=== PATIENT | male | born 1960 | race Caucasian/White ===

== ENCOUNTER 2019-04-14 08:15 | Emergency (ER) | payer OTHER ==
[~2019-04-14] VITALS: Ht 172.7 cm; Wt 85.3 kg
[~2019-04-14 08:15] MED LIST: A-B OTIC EAR DR15 ML OT; AUGMENTIN 875875 M1 PO; DOXYCYCLINE 10100 MG PO; EXCEDRIN CAPLE1 EACH PO; HYDROCODONE-AP1 EAC6 PO; NAPROSYN500 MG PO; NOHOMEMEDICATIONS; NORCO 10-325 T1 EACH PO; NORCO 5-325 TA1 EACH PO; NORFLEX100 MG PO; PROTONIX 20 MG20 MG PO; ROXICODONE5 M1 PO; TRAMADOL 50 MG50 MG PO; UNICOMPLEX M TA1 TA1 PO; VALIUM10 MG; VALIUM5 MG PO; VICOPROFEN 2001 EACH PO
[2019-04-14 08:40] LABS: ABSOLUTE BASOPHILS 0.1 thou/uL (0.0-0.2); ABSOLUTE LYMPHOCYTES 2.9 thou/uL (0.8-5.3); ABSOLUTE MONOCYTES 1.4 thou/uL (0.0-1.2); ABSOLUTE NEUTROPHILS 9.2 thou/uL (1.6-8.1); BASOPHILS 0.8 %; EOSINOPHILS 0.3 %; HEMATOCRIT 43.8 % (42.0-52.0); HEMOGLOBIN 15.5 gm/dL (14.0-18.0); LYMPHOCYTES 21.1 %; MCH 31.9 pg (26.0-34.0); MCHC 35.4 g/dL (28.0-37.0); MCV 90.1 fL (80.0-100.0); MONOCYTES 10.1 %; MPV 6.9 fl. (7.2-11.1); NUCLEATED RBCS 0 /100WBC; PLATELET COUNT* 335 thou/uL (150-400); POLYS 67.7 %; RBC 4.86 mil/uL (4.50-6.00); RDW-CV 13.4 % (10.5-14.5); WBC 13.6 thou/uL (4.0-11.0)
[2019-04-14 08:50] LABS: ANION GAP 14 mmol/L (7-16); BUN 11 mg/dL (7-18); CALCIUM 9.5 mg/dL (8.5-10.1); CHLORIDE 99 mmol/L (98-107); CO2 29 mmol/L (21-32); CREATININE 1.4 mg/dL (0.6-1.3); GLUCOSE 120 mg/dL (70-99); SODIUM 142 mmol/L (136-145)
[2019-04-14 08:53] LABS: APTT 28.9 Seconds (25.0-31.3); PROTIME 9.9 Seconds (9.20-11.50)
[2019-04-14 09:03] LABS: ALBUMIN 4.1 g/dL (3.4-5.0); ALKALINE PHOSPHATASE 123 U/L (46-116); CK-MB MASS 0.5 ng/mL (<0.5-3.6); LIPASE 51 U/L (73-393); MAGNESIUM 2.1 mg/dL (1.8-2.4); NT-PRO BRAIN NAT PEPTIDE 201 pg/mL (<300); SGOT 18 U/L (15-37); SGPT 45 U/L (30-65); TOTAL BILIRUBIN 3.1 mg/dL (<0.1-1.0); TOTAL PROTEIN 8.1 g/dL (6.4-8.2); TROPONIN-I LEVEL <0.06 ng/mL (<0.06)
[2019-04-14 09:04] LABS: POTASSIUM 2.8 mmol/L (3.5-5.1)
--- NOTE | 2019-04-14 12:47 | EXE ---
[place] [address] STRESS ECHOCARDIOGRAM Name: [facility]REE [facility]ARSEN [id number] Admission: 04/14/19 Attend Phys: Discharge: Date of : 60 Date of Service: 04/14/19 1247 Report #: [id number] THIS REPORT FOR: //name// APPROVED REPORT Study performed: 04/14/2019 11:38:37 Exam: Dobutamine Stress Echo Indication: Chest pain , Dyspnea Patient Location: In-Patient Stress Nurse: Skylar Alvares RN Room #: Supervising Physician: Neno Maciel MD Ht: 5 ft 8 in HR: 91 bpm BP: 145/90 mmHg Medical History Cardiac Risk Factors: Tobacco History (Current/Recent) Procedure The patient underwent a Pharmacological Stress Test using Dobutamine. Blood pressure, heart rate, and EKG were monitored. An Echocardiogram was performed by warehouse technician in four stages in quad fashion. At peak stress, four selected images were obtained and placed side by side with resting images for comparison. Stress Test Details Stress Test: Pharmacological Stress Test using Dobutamine. Reason for pharmacologic stress test: physical limitation. HR Resting HR: 91 bpm Max Heart Rate (APMHR): 162 bpm Max HR Achieved: 185 bpm Target HR (85% APMHR): 137 bpm % of APMHR: 114 Recovery HR: 100 bpm HR response to stress: Normal HR response to stress BP Resting BP: 145/90 mmHg Max BP: 172/86 mmHg Recovery BP: 125/73 mmHg BP response to stress: Normal blood pressure response [place] [address] STRESS ECHOCARDIOGRAM Name: TYREE LARSEN Room: [facility]#: [id number] Admission: 04/14/19 Attend Phys: Discharge: Date of : 60 Date of Service: 04/14/19 1247 Report #: [id number] Resting ECG: Sinus Rhythm, RBBB Stress ECG: Sinus Rhythm, RBBB ST Change: Normal Maximum ST Deviation: 0 mm Arrhythmia: None Recovery ECG: Sinus Rhythm, RBBB Recovery ST Change: Normal Recovery ST Deviation: 0 mm Recovery Arrhythmia: None Clinical Reason for Termination: Completed protocol Stress Symptoms: Chest pain Pre-Stress Echo The resting Echocardiogram showed normal left ventricular contractility with an estimated Ejection Fraction of about 60-65%. Post-Stress Echo The stress Echocardiogram showed normal left ventricular contractility with an estimated Ejection Fraction of about >70%. Conclusion Clinical Response: Equivocal Stress ECG Response: Indeterminant Stress Echo Images: Non-ischemic low risk dobutamine stress echo for predicting future cardiac events. Other Information Study Quality: Fair <Conclusion> low risk dobutamine stress echo for predicting future cardiac events. <ELECTRONICALLY SIGNED> By: Neno Maciel MD, FAC 04/14/19 1247 1247 1247 Neno Maciel MD, [facility] /INF
[2019-04-14] MEDS ORDERED: ULTRAM 50MG TAB50 MG PO (13:04)
[2019-04-14] MEDS ORDERED: AMOXICILLIN 50500 MG PO (13:04)
[2019-04-14 13:23] VITALS: BP 132/84
--- NOTE | 2019-04-14 16:16 | EKG ---
[place] [address] ELECTROCARDIOGRAM REPORT Name: TYREE LARSEN Room: [facility]#: [id number] Admission: 04/14/19 Attend Phys: Discharge: 04/14/19 Date of : 60 Report #: [id number] THIS REPORT FOR: //name// [facility] ED Test Date: 2019-04-14 Test Time: 08:20:22 Pat Name: TYREE LARSEN Department: Room: Gender: M Reimbursement Specialist: TDOWNS : 1960 Requested By: Ziggy Chun Order Number: [id number] MD: Neno Maciel Measurements Intervals [place] Rate: 130 P: -76 NE: 120 QRS: -85 QRSD: 125 T: 41 QT: 340 QTc: 500 Interpretive Statements Sinus or ectopic atrial tachycardia Atrial premature complex RBBB and LAFB Inferior infarct, old Baseline wander in lead(s) V3,V4,V5,V6 Compared to ECG 07/02/2017 14:11:27 Atrial premature complex(es) now present Sinus rhythm no longer present Electronically Signed On 04-14-2019 16:15:47 CDT by Neno Maciel [email or web address] <ELECTRONICALLY SIGNED> By: Neno Maciel MD, [facility] 04/14/19 1615 9 9 Neno Maciel MD, [facility] /EPI
== END 2019-04-14 13:23 | disposition home or self-care (01) ==
LOC: M.ERS 08:15
PROVIDERS: Family Medicine
DX: K04.7 Periapical abscess without sinus (principal); R07.9 Chest pain, unspecified; E87.6 Hypokalemia; M19.90 Unspecified osteoarthritis, unspecified site; F17.210 Nicotine dependence, cigarettes, uncomplicated; Z90.49 Acquired absence of other specified parts of digestive tract

== ENCOUNTER 2020-11-18 20:00 | Emergency (ER) | payer OTHER ==
[~2020-11-18] VITALS: Ht 172.7 cm; Wt 95.3 kg
[~2020-11-18 20:00] MED LIST changes: +AMOXICILLIN 50500 MG PO; +ULTRAM 50MG TAB50 MG PO
[2020-11-18] MEDS ORDERED: PREDNISONE50 MG PO (22:08)
[2020-11-18] MEDS ORDERED: FLEXERIL PO (22:08)
[2020-11-18] MEDS ORDERED: NORCO 10-325 T1 EACH PO (22:08)
[2020-11-18] MEDS ORDERED: DICLOFENAC SODI75 MG PO (22:08)
[2020-11-18 22:20] VITALS: BP 192/109
== END 2020-11-18 22:20 | disposition home or self-care (01) ==
LOC: M.ERS 20:00
DX: G89.29 Other chronic pain (principal); M16.0 Bilateral primary osteoarthritis of hip; M17.11 Unilateral primary osteoarthritis, right knee; F17.210 Nicotine dependence, cigarettes, uncomplicated; Z90.49 Acquired absence of other specified parts of digestive tract; Z96.652 Presence of left artificial knee joint; Z88.6 Allergy status to analgesic agent; W00.0XXA Fall on same level due to ice and snow, initial encounter; Y93.89 Activity, other specified; Y92.89 Other specified places as the place of occurrence of the external cause; Y99.8 Other external cause status

== ENCOUNTER 2020-11-26 19:41 | Inpatient (IN) | payer OTHER ==
[~2020-11-26] VITALS: Ht 172.7 cm; Wt 110.3 kg
--- NOTE | ~2020-11-26 | OP ---
[facility] [address] [place] [address] OPERATIVE REPORT Name: TYREE LARSEN Room: [address] IN .R.#: [id number] Admission: 11/26/20 Attend Phys: Mariam Enriquez MD Discharge: Date of : 60 Report #: [id number] THIS REPORT FOR: cc: FAM - No family physician/PCP FAM - No family physician/PCP ~ Alexandru Dean DO DICTATED BY: Paolo Cosme DO DATE OF SERVICE: 11/27/2020 PREOPERATIVE DIAGNOSIS: Right lower extremity soft tissue infection. POSTOPERATIVE DIAGNOSIS: Right lower extremity necrotizing fasciitis. PROCEDURES PERFORMED: Incision, drainage and debridement of right lower extremity several sites includin. Lateral thigh wound measuring 23 cm x 5 cm down to the level of muscle and fascia. 2. Medial thigh wound measuring 17 cm x 4 cm down to the level of muscle and fascia. 3. Medial lower extremity calf approximately 15 cm x 3 cm down to the level of muscle and fascia. 4. Lateral leg/calf approximately 4 cm down to the level of fascia and muscle. 5. Application of wound VAC to lateral thigh, medial thigh, medial calf. SURGEON: Alexandru Dean DO SLIP COVER SEWER: Osmani Cosme DO; Flavio Kan DO; Emily Blackwell DO ANESTHESIA: General. FLUIDS: Crystalloids per anesthesia. ESTIMATED BLOOD LOSS: 50 mL. DRAINS: None, but there are wound VACs in place. SPECIMENS: Multiple culture swabs as well as tissue cultures. COMPLICATIONS: None. CONDITION OF PATIENT: Stable. DISPOSITION: PACU, then return to Med/[place] [address] OPERATIVE REPORT Name: TYREE LARSEN Room: [address] IN [facility]#: [id number] Admission: 11/26/20 Attend Phys: Mariam Enriquez MD Discharge: Date of : 60 Report #: [id number] ANTIBIOTICS: The patient was on scheduled vancomycin and Rocephin from the floor. INDICATIONS FOR PROCEDURE: The patient is a 60-year-old male who was admitted to the hospital last night for further evaluation of right lower extremity cellulitis and concern for abscess based on CT imaging of his hip. He states that he had cellulitis for approximately 2 weeks. He had been evaluated in other Emergency Department about a week ago and they recommended oral antibiotics, which he tried, but he does not remember the name. On this admission, he was started on vancomycin and Rocephin. Upon evaluation in the morning after reviewing the hip CT, which demonstrated possible subcutaneous intramuscular gas in the anterior thigh compartment. CT of the right lower extremity did indicate some soft tissue edema/abscess throughout the thigh as well as the calf with the gas noted again therefore recommended emergent surgical incision, drainage and debridement. Informed the patient of the risks, benefits, indications, complications associated with this procedure including but not limited to infection, wound healing complications, need for a wound VAC and delayed closure, possible multiple repeat I and Ds, complication with anesthesia, DVT, PE, end-organ damage as well as other possibilities including . The patient demonstrated good understanding and wanted to proceed with surgery. OPERATIVE FINDINGS: A surgical evaluation of multiple incision sites, that are total of 4, did demonstrate subcutaneous seroma as well as purulence at the lateral thigh in the anterior compartment along the rectus and vastus musculature. The medial thigh wound demonstrated purulence and seromatous fluid along the sartorius musculature. The medial calf wound demonstrated purulence throughout the gastrocnemius and the lateral calf wound just demonstrated serous changes without any obvious gross purulence in the anterior and lateral compartments. DESCRIPTION OF PROCEDURE: I met with the patient in the preoperative suite. The correct right lower extremity was marked. The patient was taken to the operating room and placed supine on a well-padded table. He was given general anesthetic. A surgical timeout was completed, indicating correct patient, operative site and procedure to be performed. All in the room were in agreement and would like to proceed. We started the procedure at the lateral thigh as this seemed based on the CT to be the focus of the majority of the infection. Large incision was made approximately 23-25 cm in length through the skin and subcutaneous tissue to the level of the fascia, this was incised and the subcutaneous tissue was very serous and then as soon as the fascia was incised, there was gross purulence rather significant amount extending from the deep fascia. This was thoroughly irrigated with multiple 3 liter bags of saline. Also turned our attention to the medial thigh. An incision was made where further purulence was encountered deep to [place] [address] OPERATIVE REPORT Name: TYREE LARSEN Room: [address] IN [facility]#: [id number] Admission: 11/26/20 Attend Phys: Mariam Enriquez MD Discharge: Date of : 60 Report #: [id number] musculature. The surrounding compartments were also incised to verify there was no other tracking purulence and all of the compartments of the thigh were thoroughly examined and irrigated with multiple 3 liter bags of saline. I turned attention to the medial calf. Skin incision was made. Dissection was taken down to the level of the fascia and this was incised, demonstrating purulence again around the gastrocnemius musculature. Deep soleus musculature was free of purulence. Lateral wound was also opened to verify there was no infection here. There was a serous tissue at an incision based on the lateral lower leg. The anterior compartment and lateral compartments were both opened and evaluated and there was serous fluid without any gross purulence. Regardless, the lateral lower leg wound was also irrigated with copious saline. After all of the wounds were thoroughly irrigated using a total of at least 6-8 three liter bags of saline. I elected to close the wound with a wound VAC over both of the thigh wounds as well as the medial calf wound. Since there was no significant purulence in the lateral lower leg wound, this was closed with a 2-0 Monocryl and an interrupted 3-0 nylon on the skin. The wound VAC was set to 125 degrees of a negative pressure and there was good suction and seal at all 3 wound VAC sites. The lateral lower leg was dressed with 4 x 4s and Tegaderm. Karlos wrap was then applied. Needle and sponge counts were correct x 2 at the end of procedure. The patient was awakened from anesthesia and transferred to PACU in stable condition. ATTESTATION: Dr. Dean was present throughout all critical aspects of the case. POSTOPERATIVE CARE: The patient will obtain a consult from infectious disease for further recommendations regarding antibiotics. He will continue on vancomycin and Rocephin for now. We will follow the intraoperative cultures throughout his hospital stay. By: 1638 1720Alabrenda Dean DO /jonatan
[~2020-11-26 19:41] MED LIST changes: +DICLOFENAC SODI75 MG PO; +FLEXERIL PO; +PREDNISONE50 MG PO
[2020-11-26 19:58] VITALS: BP 120/104
[2020-11-26 20:42] LABS: HEMATOCRIT 36.1 % (42.0-52.0); HEMOGLOBIN 12.1 gm/dL (14.0-18.0); MCH 29.3 pg (26.0-34.0); MCHC 33.5 g/dL (28.0-37.0); MCV 87.4 fL (80.0-100.0); MPV 8.5 fl. (7.2-11.1); NUCLEATED RBCS 0 /100WBC; PLATELET COUNT* 223 thou/uL (150-400); RBC 4.13 mil/uL (4.50-6.00); RDW-CV 13.7 % (10.5-14.5); WBC 16.6 thou/uL (4.0-11.0)
[2020-11-26 20:47] LABS: CALCIUM 8.6 mg/dL (8.5-10.1); CREATININE 2.7 mg/dL (0.6-1.3); POTASSIUM 3.3 mmol/L (3.5-5.1)
[2020-11-26 20:58] LABS: ALBUMIN 1.7 g/dL (3.4-5.0); TOTAL BILIRUBIN 1.5 mg/dL (<0.1-1.0); TOTAL PROTEIN 6.8 g/dL (6.4-8.2)
[2020-11-26 21:23] LABS: ABSOLUTE LYMPHOCYTES 0.8 thou/uL (0.8-5.3); ABSOLUTE MONOCYTES 0.3 thou/uL (0.0-1.2); ABSOLUTE NEUTROPHILS 15.4 thou/uL (1.6-8.1); ATYPICAL LYMPHS 1 %
[2020-11-26 21:24] LABS: PLATELET ESTIMATE ADEQUATE
[2020-11-26 22:10] LABS: APTT 31.7 Seconds (25.0-31.3); INR 1.1; PROTIME 11.4 Seconds (9.20-11.50)
[2020-11-26 22:30] VITALS: BP 124/90
[2020-11-26 22:58] LABS: ESR (SEDRATE) 119 mm/hr (0-20)
[2020-11-26 23:30] VITALS: BP 115/69
[2020-11-27 08:20] VITALS: BP 116/75
[2020-11-27 11:52] VITALS: BP 113/71
[2020-11-27 12:29] LABS: AMP/METHAMP Negative (Negative); BARBITURATES Negative (Negative); BENZODIAZEPINES Negative (Negative); COCAINE Negative (Negative); METHADONE Negative (Negative); OPIATES POSITIVE (Negative); PCP Negative (Negative); THC POSITIVE (Negative)
--- NOTE | 2020-11-27 14:00 | EKG ---
[place] [address] ELECTROCARDIOGRAM REPORT Name: TYREE LARSEN Room: [address] IN [facility].#: [id number] Admission: 11/26/20 Attend Phys: Mariam Enriquez, Discharge: Date of : 60 Date of Service: 11/26/202028 Report #: [id number] THIS REPORT FOR: //name// [facility] ED Test Date: 2020-11-26 Test Time: 20:29:13 Pat Name: TYREE LARSEN Department: Room: [facility] Gender: M Steamtable Worker: [place] : 1960 Requested By: Benedict Mcbride Order Number: [id number] MD: Emmett Dowd Measurements Intervals [place] Rate: 105 P: 41 [place]: 181 QRS: -66 QRSD: 147 T: 34 QT: 369 QTc: 488 Interpretive Statements Sinus tachycardia Atrial premature complex RBBB and LAFB Compared to ECG 04/14/2019 08:20:22 Myocardial infarct finding no longer present Electronically Signed On 11-27-2020 14:00:38 JIGGER MACHINE OPERATOR by Emmett Dowd [email or web address] <ELECTRONICALLY SIGNED> By: Anastacio Dowd MD, [facility] 11/27/201399 28 28 Anastacio Dowd MD, [facility] /EPI
[2020-11-27 20:07] LABS: CREATININE 1.7 mg/dL (0.6-1.3); POTASSIUM 3.4 mmol/L (3.5-5.1)
[2020-11-27 20:21] LABS: ALBUMIN 1.5 g/dL (3.4-5.0); TOTAL BILIRUBIN 1.4 mg/dL (<0.1-1.0)
[2020-11-27 20:32] LABS: HEMATOCRIT 34.3 % (42.0-52.0); HEMOGLOBIN 11.3 gm/dL (14.0-18.0); MCH 28.9 pg (26.0-34.0); MCHC 32.9 g/dL (28.0-37.0); MCV 87.9 fL (80.0-100.0); MPV 8.9 fl. (7.2-11.1); NUCLEATED RBCS 0 /100WBC; PLATELET COUNT* 236 thou/uL (150-400); RDW-CV 13.8 % (10.5-14.5); WBC 21.8 thou/uL (4.0-11.0)
[2020-11-27 20:51] LABS: ABSOLUTE LYMPHOCYTES 1.7 thou/uL (0.8-5.3); ABSOLUTE MONOCYTES 1.1 thou/uL (0.0-1.2); METAMYELOCYTES 1 %
[2020-11-27 20:53] LABS: LARGE PLATELETS OCCASIONAL; PLATELET ESTIMATE ADEQUATE
[2020-11-27 20:54] LABS: HYPOCHROMASIA Occasional; POLYCHROMASIA Occasional; TOXIC GRANULATION Occasional
[2020-11-27 21:08] VITALS: BP 96/57
[2020-11-27 21:32] VITALS: BP 158/78
[2020-11-27 22:03] VITALS: BP 122/72
[2020-11-27 22:34] VITALS: BP 120/79
[2020-11-28] VITALS (21 sets, daily range): BP systolic 90–154; BP diastolic 52–114
[2020-11-28 03:22] LABS: ABSOLUTE EOSINOPHILS 0.1 thou/uL (0.0-0.7); ABSOLUTE LYMPHOCYTES 1.3 thou/uL (0.8-5.3); ABSOLUTE MONOCYTES 0.7 thou/uL (0.0-1.2); ABSOLUTE NEUTROPHILS 21.6 thou/uL (1.6-8.1); BASOPHILS 0.1 %; EOSINOPHILS 0.4 %; HEMATOCRIT 31.3 % (42.0-52.0); HEMOGLOBIN 10.3 gm/dL (14.0-18.0); LYMPHOCYTES 5.6 %; MCH 28.9 pg (26.0-34.0); MCV 87.7 fL (80.0-100.0); NUCLEATED RBCS 0 /100WBC; PLATELET COUNT* 241 thou/uL (150-400); POLYS 90.9 %; RBC 3.56 mil/uL (4.50-6.00); RDW-CV 13.7 % (10.5-14.5); WBC 23.8 thou/uL (4.0-11.0)
[2020-11-28 03:35] LABS: CALCIUM 8.1 mg/dL (8.5-10.1); CREATININE 1.7 mg/dL (0.6-1.3); POTASSIUM 3.3 mmol/L (3.5-5.1)
--- NOTE | 2020-11-28 11:59 | EKG ---
[place] [address] ELECTROCARDIOGRAM REPORT Name: TYREE LARSEN Room: [address] IN [facility].#: [id number] Admission: 11/26/20 Attend Phys: Mariam Enriquez, Discharge: Date of : 60 Date of Service: 11/27/20 1829 Report #: [id number] THIS REPORT FOR: //name// [facility] Test Date: 2020-11-27 Test Time: 18:29:55 Pat Name: TYREE LARSEN Department: Room: [facility] Gender: M Automation Operator: REJI : 1960 Requested By: Prince Ahn Order Number: [id number] Reading MD: Emmett Dowd Measurements Intervals [place] Rate: 154 P: 0 [place]: QRS: -80 QRSD: 135 T: 20 QT: 293 QTc: 469 Interpretive Statements Sinus tachycardia RBBB and LAFB Baseline wander in lead(s) V1 Compared to ECG 11/26/2020 20:29:13 Atrial premature complex(es) no longer present Electronically Signed On 11-28-2020 11:59:26 PROGRAM DIRECTOR/MUSIC DIRECTOR by Emmett Dowd [email or web address] <ELECTRONICALLY SIGNED> By: Anastacio Dowd MD, [facility] 11/28/20 1159 182 28 Anastacio Dowd MD, [facility] /EPI
--- NOTE | 2020-11-29 13:36 | EKG ---
[place] [address] ELECTROCARDIOGRAM REPORT Name: TYREE LARSEN Room: [address] IN [facility]#: [id number] Admission: 11/26/20 Attend Phys: Mariam Enriquez, Discharge: 11/28/20 Date of : 60 Date of Service: 11/27/20 1343 Report #: [id number] THIS REPORT FOR: //name// [facility] Test Date: 2020-11-27 Test Time: 13:43:47 Pat Name: TYREE LARSEN Department: Room: [facility] Gender: M Medical Staff Services Manager: : 1960 Requested By: Jorge A Fermin Order Number: [id number] MD: Randall Carlos Measurements Intervals [place] Rate: 154 P: 0 [place]: 31 QRS: -76 QRSD: 135 T: 6 QT: 284 QTc: 455 Interpretive Statements Supraventricular tachycardia of unspecified mechanism Right bundle branch block Inferior infarct, age indeterminate Abnormal lateral Q waves Baseline wander in lead(s) V1 Compared to ECG 11/26/2020 20:29:13 Myocardial infarct finding now present Q waves now present Supraventricular tachycardia is noted Electronically Signed On 11-29-2020 13:36:18 SENIOR WINDOWS SYSTEMS ENGINEER by Randall Carlos [email or web address] <ELECTRONICALLY SIGNED> By: Randall Carlos MD, [facility] 11/29/20 1336 1343 1343 Randall Carlos MD, [facility] /EPI
--- NOTE | 2020-11-29 13:37 | EKG ---
[place] [address] ELECTROCARDIOGRAM REPORT Name: TYREE LARSEN Room: [address] IN .R.#: [id number] Admission: 11/26/20 Attend Phys: Mariam Enriquez, Discharge: 11/28/20 Date of : 60 Date of Service: 11/27/20 1345 Report #: [id number] THIS REPORT FOR: //name// [facility] Test Date: 2020-11-27 Test Time: 13:45:51 Pat Name: TYREE LARSEN Department: Room: [address] Gender: M Trade Mark Examiner: : 1960 Requested By: Mariam Enriquez Order Number: [id number] Reading MD: Randall Carlos Measurements Intervals [place] Rate: 153 P: 0 [place]: QRS: -76 QRSD: 140 T: 19 QT: 344 QTc: 549 Interpretive Statements Supraventricular tachycardia RBBB and LAFB Baseline wander in lead(s) I,II,aVR Compared to ECG 11/27/2020 13:43:47 Inferolateral Q's persist Electronically Signed On 11-29-2020 13:37:36 ANIMAL NUTRITION TEACHER by Randall Carlos [email or web address] <ELECTRONICALLY SIGNED> By: Randall Carlos MD, [facility] 11/29/20 1337 1345 1345 Randall Carlos MD, [facility] /EPI
== END 2020-11-28 16:30 | disposition short-term general hospital (02) | DRG 853 ==
LOC: M.ERS 19:41 → M.TBA-ER 21:38 → M.3W 23:21 → M.2W 11-27 18:13 → M.ICU 11-27 21:31
PROVIDERS: Family Medicine; Internal Medicine; Personal Emergency Response Attendant; Physician Assistant; ADMIT Internal Medicine; ATTEND Internal Medicine
DX: A41.9 Sepsis, unspecified organism (principal); N17.0 Acute kidney failure with tubular necrosis; M72.6 Necrotizing fasciitis; I38 Endocarditis, valve unspecified; L03.115 Cellulitis of right lower limb; M19.90 Unspecified osteoarthritis, unspecified site; G89.29 Other chronic pain; M60.9 Myositis, unspecified; F17.200 Nicotine dependence, unspecified, uncomplicated; Z96.651 Presence of right artificial knee joint; Z90.49 Acquired absence of other specified parts of digestive tract; Z79.899 Other long term (current) drug therapy; Z88.8 Allergy status to other drugs, medicaments and biological substances